=== PATIENT | female | born 1965 | race Caucasian/White ===

== ENCOUNTER 2017-02-08 19:07 | Emergency (ER) | payer OTHER ==
--- NOTE | ~2017-02-08 | CT71 ---
[facility] A Service of [facility] RADIOLOGY TEXT RESULTS PATIENT: SARAH ASHRAF LOCATION: ROB : 63 UNIT #: [id number] AGE: [address]: Johnnie Portillo DO SEX: F ORDER DR: [id number] [facility] [address] [place], [place] [address] [id number] E MR#: [id number] Acc #: [id number] NAME: SARAH ASHRAF : 1965 SEX: F STUDY DATE/TIME: 02/08/2017 23:38 UNIT: ROB ROOM: STUDY DESCRIPTION: CT Head Wo Contrast Attending Physician: Johnnie Portillo D.O. Ordering Physician: Johnnie Portillo D.O. Primary Care Physician: Primary Care Physician No MEDICAL IMAGING REPORT This report is preliminary unless electronic signature is present EXAM CT head, noncontrast, 02/08/2017 HISTORY 51-year-old female in the ED complaining of 2-day history of headache, dizziness and ear ache. TECHNIQUE CT examination of the head without IV contrast. This CT exam was performed with one or more of the following radiation dose reduction techniques: automatic exposure control, adjustment of mA and/or kV according to patient size, and iterative reconstruction. FINDINGS The examination is negative. No evidence of intracranial hemorrhage, mass, mass effect, cerebral edema, hydrocephalus or additional abnormality. IMPRESSION Negative head CT examination.. Dictated by... Epifanio King M.D. THIS IS AN ELECTRONICALLY VERIFIED REPORT Epifanio King M.D. at 02/09/2017 6:02 AM DEBORA/alexsandra TD: 02/09/2017 03:41 JOB #: [id number] MEDICAL IMAGING REPORT [facility] A Service [facility] RADIOLOGY TEXT RESULTS PATIENT: SARAH ASHRAF LOCATION: ROB : 63 UNIT #: [id number] AGE: [address]: Johnnie Portillo DO SEX: F ORDER DR: Page 1 of 1 COPY
--- NOTE | ~2017-02-08 | EKG ---
PATIENT: SARAH ASHRAF UNIT #: [id number] Ventricular Rate: 80 BPM Atrial Rate: 80 BPM P-R Interval: 140 ms QRS Duration: 78 ms Q-T Interval: 400 ms QTC Calculation(Bezet): 461 ms P Grove: 48 degrees Calculated R Grove: -7 degrees Calculated T Grove: 46 degrees Diagnosis Line: Normal sinus rhythm Diagnosis Line: Nonspecific ST abnormality Diagnosis Line: Abnormal ECG Diagnosis Line: When compared with ECG of 09-MAY-2016 11:39, Diagnosis Line: No significant change was found Diagnosis Line: Confirmed by HUSAM FAUSTIN MD ([id number]) on Diagnosis Line: 02/09/2017 10:08:34 PM INTERPRETING MD: SYLWIA
--- NOTE | ~2017-02-08 | US85 ---
[facility] A Service of [facility] & [facility] RADIOLOGY TEXT RESULTS PATIENT: SARAH ASHRAF LOCATION: [facility] : 63 UNIT #: [id number] AGE: [address]: Johnnie Portillo DO SEX: F ORDER DR: [id number] [facility] [address] [place], [place] [address] [id number] E MR#: [id number] Acc #: [id number] NAME: SARAH ASHRAF : 1965 SEX: F STUDY DATE/TIME: 02/08/2017 22:24 UNIT: [facility] ROOM: STUDY DESCRIPTION: [facility] [employer] Attending Physician: Johnnie Portillo D.O. Ordering Physician: Johnnie Portillo D.O. Primary Care Physician: Primary Care Physician No MEDICAL IMAGING REPORT This report is preliminary unless electronic signature is present EXAM Right lower extremity venous ultrasound HISTORY Right lower extremity pain for 1 day. TECHNIQUE Venous ultrasound examination of the right lower extremity was performed using grayscale, spectral Doppler and color flow Doppler imaging. FINDINGS The examination is negative. There is no evidence of right lower extremity deep venous thrombus from the groin to the lower calf. Visualized greater saphenous vein is also patent. IMPRESSION Negative examination. No evidence of right lower extremity deep venous thrombosis. Dictated by... Wil Antony M.D. THIS IS AN ELECTRONICALLY VERIFIED REPORT Wil Antony M.D. at 02/09/2017 11:10 PM DFL/psc TD: 02/09/2017 02:27 JOB #: [id number] MEDICAL IMAGING REPORT Page 1 of 1 COPY
--- NOTE | ~2017-02-08 | CT17 ---
[facility] A Service of [facility] & [facility] RADIOLOGY TEXT RESULTS PATIENT: SARAH ASHRAF LOCATION: [facility] : 63 UNIT #: [id number] AGE: [address]: Johnnie Portillo DO SEX: F ORDER DR: [id number] [facility] [address] [place], [place] [address] [id number] E MR#: [id number] Acc #: [id number] NAME: SARAH ASHRAF : 1965 SEX: F STUDY DATE/TIME: 02/08/2017 23:47 UNIT: [facility] ROOM: STUDY DESCRIPTION: CT Angio Head Attending Physician: Johnnie Portillo D.O. Ordering Physician: Johnnie Portillo D.O. Primary Care Physician: Primary Care Physician No MEDICAL IMAGING REPORT This report is preliminary unless electronic signature is present EXAM CT angiogram head and neck HISTORY Dizziness, headache and ear pain for 2 days. History of hypertension. COMMENT CT angiography of the head and neck vessels performed during the intravenous administration of 100 mL of Isovue-370. Imaging acquired in the axial plane followed by multiple reconstructed and reformatted images for the purpose of 3-D CT angiography of the head and neck vessels. This CT examination was performed with one or more of the following radiation dose reduction techniques: automatic exposure control, adjustment of mA and/or kV according to patient size, and iterative reconstruction. Comparison head CT is from earlier the same day. Preliminary voice note provided by Dr. King 01:20 a.m. 02/09/2017. CT ANGIOGRAM NECK: Left vertebral artery arises from the aortic arch. Evaluation right carotid system shows 0% stenosis right carotid bifurcation. Right carotid siphon is widely patent. Assessment left carotid system shows 0% stenosis left carotid bifurcation. Left carotid siphon is widely patent. Left vertebral artery patent throughout. Right vertebral artery patent throughout. Both vertebral arteries supply the basilar. They are fairly codominant. Left may be slightly larger. Evaluation of the intracranial circulation shows no intracranial vascular cutoff. If there is an anterior communicating artery present, it is tiny. No significant posterior communicator is seen on either side. There is a focus of contrast outpouching from the supraclinoid ICA on the left up to about 2 mm in dimension. It is possible it is an infundibulum to a tiny posterior communicator, which is not well seen. It is alternatively possible this is a 2 mm aneurysm. For this reason, I would recommend that [facility] A Service of [facility] & [facility] RADIOLOGY TEXT RESULTS PATIENT: SARAH ASHRAF LOCATION: [facility] : 61 UNIT #: [id number] AGE: [address]: Johnnie Portillo DO SEX: F ORDER DR: it be followed. I would recommend first followup study with MR angiography in about 6 months. Efforts underway to reach covering practitioner at this time to relay this information verbally as well. Tiny foci of contrast outpouching at the right side supraclinoid ICA are probably tiny infundibuli but again attention to this area is recommended on followup also. The dural venous sinuses are patent. The visualized paranasal sinuses and mastoid air cells are clear. There is some artifact from dental metal. IMPRESSION 1. By NASCET criteria, 0% diameter stenosis either carotid bifurcation. 2. Both vertebral arteries are patent and fairly codominant. 3. No intracranial vascular cutoff. No focal central stenosis. 4. 2-mm focus of contrast outpouching supraclinoid left ICA could be a small aneurysm. It do not see a definite posterior communicating artery. For this reason, I would recommend a followup study with first followup examination to be an MR angiogram (if the patient is a candidate) in about 6 months. Also a tiny focus of contrast outpouching right side supraclinoid ICA possibly a tiny infundibulum, possibly tiny aneurysm and attention to this area is also recommended on the follow up study. ADDENDUM: Patient discharged from the emergency room overnight. I have spoken to Estela, the charge nurse, and relayed to her the presence of a possible aneurysm and the need for follow up. She indicated that she would take care of this. STAT * RESULT Dictated by... Zarina Jones M.D. THIS IS AN ELECTRONICALLY VERIFIED REPORT Zarina Jones M.D. at 02/09/2017 10:32 AM LISSY/margie TD: 02/09/2017 10:05 JOB #: [id number] MEDICAL IMAGING REPORT Page 1 of 1 COPY
--- NOTE | ~2017-02-08 | CT23 ---
[facility] A Service of [facility] & [facility] RADIOLOGY TEXT RESULTS PATIENT: SARAH ASHRAF LOCATION: [employer] : 61 UNIT #: [id number] AGE: [address]: Johnnie Portillo DO SEX: F ORDER DR: [id number] [facility] [address] [place], [place] [address] [id number] E MR#: [id number] Acc #: [id number] NAME: SARAH ASHRAF : 1965 SEX: F STUDY DATE/TIME: 02/08/2017 23:47 UNIT: [facility] ROOM: STUDY DESCRIPTION: CT Angio Neck Attending Physician: Johnnie Portillo D.O. Ordering Physician: Johnnie Portillo D.O. Primary Care Physician: Primary Care Physician No MEDICAL IMAGING REPORT This report is preliminary unless electronic signature is present EXAM CT angiogram of the neck FINDINGS Please see CT angiogram of the head for results. STAT * RESULT Dictated by... Zarina Jones M.D. THIS IS AN ELECTRONICALLY VERIFIED REPORT Zarina Jones M.D. at 02/10/2017 10:26 AM LISSY/margie TD: 02/09/2017 10:07 JOB #: [id number] MEDICAL IMAGING REPORT Page 1 of 1 COPY
--- NOTE | ~2017-02-08 | CR151 ---
[facility] A Service of [facility] & [facility] RADIOLOGY TEXT RESULTS PATIENT: SARAH ASHRAF LOCATION: [facility] : 61 UNIT #: [id number] AGE: [address]: Johnnie Portillo DO SEX: F ORDER DR: [id number] [facility] [address] [place], [place] [address] [id number] E MR#: [id number] Acc #: [id number] NAME: SARAH ASHRAF : 1965 SEX: F STUDY DATE/TIME: 02/08/2017 22:09 UNIT: [facility] ROOM: STUDY DESCRIPTION: CR Hip Min 2 Views Rt Attending Physician: Johnnie Portillo D.O. Ordering Physician: Johnnie Portillo D.O. Primary Care Physician: Primary Care Physician No MEDICAL IMAGING REPORT This report is preliminary unless electronic signature is present EXAM Right hip, 2 views COMPARISON None INDICATIONS 51-year-old female with right hip pain for 2 years, worsening yesterday. FINDINGS There are multiple inspissated stool balls within the rectum and likely within the sigmoid colon as well. Right hip is anatomically aligned. No evidence of acute fracture or significant degenerative change. IMPRESSION 1. No acute fracture, dislocation or significant degenerative change of the right hip. 2. Inspissated stool seen within the rectum and sigmoid colon. Dictated by... Jones Stallworth M.D. THIS IS AN ELECTRONICALLY VERIFIED REPORT Jones Stallworth M.D. at 02/09/2017 3:03 PM MAYDA/nicholas TD: 02/09/2017 02:29 JOB #: [id number] MEDICAL IMAGING REPORT Page 1 of 1 COPY
[2017-02-08 22:18] LABS: URINE SOURCE CLEAN CATCH
[2017-02-08 22:33] LABS: POC - CKMB <1.0 ng/mL (0.0-7.9); POC - TROPONIN <0.05 ng/mL (<=0.05)
[2017-02-08 22:41] LABS: URINE APPEARANCE CLEAR; URINE BILIRUBIN NEG (NEG); URINE BLOOD NEG (NEG); URINE COLOR YELLOW; URINE GLUCOSE NEG (NEG); URINE KETONE TRACE (NEG); URINE LEUKOCYTE ESTERASE NEG (NEG); URINE NITRATE NEG (NEG); URINE PH 6.5 (5-8); URINE PROTEIN NEG (NEG)
[2017-02-08 22:43] LABS: CULTURE INDICATED? NO
[2017-02-08 22:50] LABS: AMPHETAMINE NEG (NEG); BARBITURATES NEG (NEG); BENZODIAZEPINES NEG (NEG); COCAINE NEG (NEG); MARIJUANA NEG (NEG); OPIATES NEG (NEG); TRICYCLIC ANTIDEPRESSANTS NEG (NEG); U METHADONE NEG (NEG)
[2017-02-08 23:02] LABS: BASOPHIL% 0.6 % (0-2.5); EOSINOPHIL# 0.2 X10e3 (0-0.7); EOSINOPHIL% 2.6 % (0.0-7.0); HEMATOCRIT 39.7 % (35.0-45.0); HEMOGLOBIN 12.9 gm/dL (12.0-16.0); LYMPHOCYTE# 2.7 X10e3 (1.0-3.5); LYMPHOCYTE% 47.5 % (17.0-45.0); MEAN CELL VOLUME 85.7 FL (83-96); MEAN CORPUSCULAR HEMOGLOBIN 27.9 PG (28-34); MEAN CORPUSCULAR HGB CONC 32.5 g/dL (30-36); MEAN PLATELET VOLUME 8.7 FL (6.5-11.5); MONOCYTE# 0.6 X10e3 (0-1.0); MONOCYTE% 10.8 % (3.0-12.0); NEUTROPHIL# 2.2 X10e3 (1.5-7.1); NEUTROPHIL% 38.5 % (40-75); PLATELET COUNT 243 X10e3 (140-420); RED BLOOD COUNT 4.63 X10e (3.90-5.30); RED CELL DISTRIBUTION WIDTH 12.9 % (11.0-15.5); WHITE BLOOD COUNT 5.7 X10e3 (4.0-10.5)
[2017-02-08 23:05] LABS: DIFF IND NO
[2017-02-08 23:25] LABS: ALBUMIN SERUM 3.9 g/dL (3.5-5.0); BILIRUBIN, DIRECT 0.1 mg/dL (0.0-0.2); BILIRUBIN,INDIRECT 0.5 mg/dL (0.0-0.9); BILIRUBIN,TOTAL 0.6 mg/dL (0.2-2.0); BUN/CREATININE RATIO 21.25; CALCIUM SERUM 8.9 mg/dL (8.4-10.2); CREATININE SERUM 0.8 mg/dL (0.6-1.4); GLOM FILT RATE Estimated 84.2 mL/min (>60); POTASSIUM 4.1 mmol/L (3.5-5.1); PROTEIN TOTAL SERUM 7.4 g/dL (6.0-8.3)
== END 2017-02-09 02:05 | disposition home or self-care (01) ==
LOC: CED 19:07 → CFTX 21:45 → CED 02-09 02:05
PROVIDERS: Emergency Medicine
DX: R51 Headache (principal); R42 Dizziness and giddiness; E78.5 Hyperlipidemia, unspecified; I10 Essential (primary) hypertension; Z90.49 Acquired absence of other specified parts of digestive tract; Z91.040 Latex allergy status
CPT/HCPCS: 36415; 70450; 70496; 70498; 73502; 80048; 80076; 80307; 81003; 82553; 82947; 84484; 85025; 93005; 93971; 96361; 96374; 96375; 99284; J1100; J1200; J2765; Q9967